=== PATIENT | female | born 1960 | race Caucasian/White ===

== ENCOUNTER 2016-12-02 17:42 | Inpatient (IN) | payer OTHER ==
[~2016-12-02] VITALS: Ht 152.4 cm; Wt 82.0 kg
[2016-12-02 18:11] LABS: AADO2 Arterial 28.8 mmHg (7.0-24.0); Allen Test ACCEPTAB; Arterial Base Excess 7.9 mmol/L (-3.0-3); Arterial COHb 0.8 % (0.0-3.0); Arterial HCO3 35.1 mmol/L (22.0-26.0); Arterial MetHb 0.3 % (0.0-1.5); Arterial Total Hemglobin 17.8 g/dl (12.0-18.0); MODE ROOM AIR
[2016-12-02] MEDS ORDERED: ATOR10TA65 PO (18:24)
[2016-12-02] MEDS ORDERED: LOSA50TA6 PO (18:25)
[2016-12-02] MEDS ORDERED: HYD25 PO (18:25)
--- NOTE | 2016-12-02 18:50 | RADRPT ---
PROCEDURE: XR Chest. CLINICAL INDICATION: chest pain TECHNIQUE: Single frontal view of the chest was obtained COMPARISON: None FINDINGS: The heart and mediastinum are within normal limits. The lungs are clear. There is no pleural effusion or pneumothorax. RPTAT: AA IMPRESSION: No acute disease. .Viraj Yoo MD, Date Time Electronically viewed and signed by .Viraj Yoo MD, on 12/02/2016 18:49 .S/
[2016-12-02 19:08] LABS: BASOPHILS % 0.3 % (0.0-2.0); EOSINOPHILS # 0.2 10^3/ul (0.0-0.5); EOSINOPHILS % 1.8 % (0.0-7.0); HEMATOCRIT 47.3 % (37.0-47.0); LYMPHOCYTES # 2.6 10^3/ul (0.8-2.9); LYMPHOCYTES % 20.4 % (15.0-51.0); MEAN CORPUSCULAR HGB CONC 33.8 g/dl (32.0-37.0); MEAN CORPUSCULAR VOLUME 85.7 fl (82.0-101.0); MONOCYTE # 1.3 10^3/ul (0.3-0.9); MONOCYTES % 10.4 % (0.0-11.0); NEUTROPHILS % 66.8 % (39.0-77.0); PLATELET COUNT 319 10^3/UL (140-415); RED BLOOD COUNT 5.52 10^6/ul (4.20-5.40); RED CELL DISTRIBUTION WIDTH 13.3 % (11.5-14.5); WHITE BLOOD COUNT 12.5 10^3/ul (4.8-10.8)
[2016-12-02] MEDS ORDERED: ALBUTEROL 0.083% (NEB) 2.5 MG/3 ML AMP HHN STA (19:26)
[2016-12-02 19:27] LABS: ANION GAP 15 (8-16); BLOOD UREA NITROGEN 13 mg/dl (7-20); CALCIUM 9.7 mg/dl (8.4-10.2); CARBON DIOXIDE 36 mmol/L (21-31); CHLORIDE 93 mmol/L (97-110); CREATININE 0.54 mg/dl (0.44-1.00); GLUCOSE 143 mg/dl (70-220); POTASSIUM 3.3 mmol/L (3.5-5.1); SODIUM 141 mmol/L (135-144)
[2016-12-02] MEDS ORDERED: IPRATROPIUM (NEB) 0.5 MG/2.5 ML AMP HHN ONE (19:30)
[2016-12-02 19:39] LABS: B-TYPE NATRIURETIC PEPTIDE 46 PG/ML (0-125)
[2016-12-02 19:56] LABS: TROPONIN-I < 0.012 ng/ml (0.00-0.12)
[2016-12-02] MEDS ORDERED: SOD CHLORIDE 0.9% 100 ML ONE (20:25)
[2016-12-02] MEDS ORDERED: IOHEXOL 100 ML ONE (20:25)
[2016-12-02] MEDS ORDERED: IOHEXOL 350MG/ML 50 ML BTL ONE (20:26)
[2016-12-02 21:14] LABS: ADD UMIC NO; UR ASCORBIC ACID NEGATIVE (NEGATIVE); UR BILIRUBIN (Dip) NEGATIVE (NEGATIVE); UR BLOOD (Dip) NEGATIVE (NEGATIVE); UR CLARITY CLEAR (CLEAR); UR COLOR YELLOW (YELLOW); UR GLUCOSE (Dip) NEGATIVE (NEGATIVE); UR KETONES (Dip) NEGATIVE (NEGATIVE); UR LEUKOCYTE ESTERASE (Dip) NEGATIVE Leu/ul (NEGATIVE); UR NITRITE (Dip) NEGATIVE (NEGATIVE); UR SPECIFIC GRAVITY (Dip) 1.011 (1.003-1.030); UR TOTAL PROTEIN (Dip) NEGATIVE (NEGATIVE); UR UROBILINOGEN (Dip) 1+ mg/dL (NEGATIVE)
--- NOTE | 2016-12-02 21:51 | RADRPT ---
PROCEDURE: CTA chest pulmonary angiography. CLINICAL INDICATION: Dyspnea and hypoxia. TECHNIQUE: CT angiography of the chest was performed after the uneventful intravenous administratio n of 115 cc of Omnipaque 350. Coronal and sagittal reformations were performed. 3-D/multiplanar re formations were performed by the technologist and an independent workstation. The total exam CTDI = 22.53, 9.17 mGy and the DLP equals 354.69 mGy-cm. One or more of the following dose reduction techniques were used: - Automated exposure control. - Adjustment of the mA and/or kV according to patient size. - Use of iterative reconstruction technique. COMPARISON: Chest x-ray dated 12/02/2016[facility] FINDINGS: Pulmonary angiogram: There are no emboli through the level of the subsegmental pulmonary arteries. The main pulmonary artery is normal in caliber and there is no evidence of right heart strain. Lungs, pleura, airways, and thoracic inlet: There is moderate to severe centrilobular and parasepta l emphysema. There is no focal consolidation, effusion, or pneumothorax. There are no concerning pu lmonary nodules or masses. The tracheobronchial tree is patent and normal in course and caliber. Cardiovascular system, mediastinum, and lymphatics: The heart is normal in size without pericardial thickening or effusion. There are atherosclerotic changes of the aorta, which is nonaneurysmal. The re is no axillary, hilar, or mediastinal adenopathy. Visualized upper abdomen: The visualized upper abdomen is unremarkable. Musculoskeletal system and soft tissues: There is mild to moderate multilevel degenerative enthesop athy. There are no concerning osseous lesions. There is a 1.9 cm cyst within the midline cutaneous t issues at the level of the sternum. IMPRESSION: 1. No pulmonary emboli through the level of the subsegmental pulmonary arteries. 2. Moderate to severe centrilobular and paraseptal emphysema. No focal consolidation. 3. Cyst within the midline cutaneous tissues at the level of the sternum. 4. Vascular calcifications consistent with atherosclerosis. RPTAT: HLBP .Leo Medeiros MD, Date Time Electronically viewed and signed by .Leo Medeiros MD, on 12/02/2016 21:51 .P/
[2016-12-02] MEDS ORDERED: ACETAMINOPHEN 325 MG TAB PO PRN (22:30)
[2016-12-02] MEDS ORDERED: METHYLPREDNISOLONE 125 MG INJ IV ONE (22:30)
[2016-12-02] MEDS ORDERED: ONDANSETRON 4 MG INJ IV PRN (22:30)
[2016-12-02 22:53] VITALS: TEMP 98.9
--- NOTE | 2016-12-02 22:57 | ERA ---
ER Documentation Chief Complaint Date/Time DATE: 12/02/16 TIME: 22:50 Chief Complaint Sent from Dr Diaz's Office for eval SOB sat at 84% HPI This 56-year-old female sent from Dr. Orantes's office for shortness of breath in the office and a saturation of 84% on room air. Sent her in for further workup. She is still short of breath. Does not have any chest pain but some chest discomfort. Denies any cough. Does have Dr. taylor was mentioned that she may have asthma though she has no history of it after 56 years. No fevers and chills ROS All systems reviewed and are negative except as per history of present illness. Medications Home Meds Reported Medications Losartan Potassium* (Losartan Potassium*) 50 Mg Tablet, 50 MG PO DAILY, TAB 12/02/16 Hydrochlorothiazide* (Hydrochlorothiazide*) 25 Mg Tab, 25 MG PO DAILY, #30 TAB 12/02/16 Atorvastatin Calcium (Atorvastatin Calcium) 10 Mg Tablet, 10 MG PO QHS, #30 TAB 12/02/16 Allergies Allergies: Coded Allergies: No Known Allergy (Unverified , 12/02/16) PMhx/Soc History of Surgery: Yes () Hx Cardiac Disorders: Yes (HLD, HTN, ) Hx Alcohol Use: No Hx Substance Use: No Hx Tobacco Use: No Smoking Status: Never smoker Physical Exam Vitals Vital Signs Date Time Temp Pulse Resp B/P Pulse Ox O2 Delivery O2 Flow Rate FiO2 12/02/16 20:06 80 20 96 Nasal Cannula 3.0 12/02/16 19:58 Nasal Cannula 3.0 12/02/16 19:58 80 24 119/49 96 Nasal Cannula 3.0 12/02/16 19:54 Nasal Cannula 3 12/02/16 17:48 99.2 82 20 178/79 98 Physical Exam Const: [] Moderate distress Head: Atraumatic Eyes: Normal Conjunctiva ENT: Normal External Ears, Nose and Mouth. Neck: Full range of motion..~ No meningismus. Resp: Mild tachypnea with decreased breath sounds bilaterally, scant wheezing on left side Cardio: Regular Mild tachycardia, no murmurs Abd: Soft, non tender, non distended. Normal bowel sounds Skin: No petechiae or rashes Back: No midline or flank tenderness Ext: No cyanosis, or edema Neur: Awake and alert Psych: Normal Mood and Affect Result Diagram: 12/02/16 1855 12/02/16 1855 Results 24 hrs Laboratory Tests Test 12/02/16 17:53 12/02/16 18:55 12/02/16 20:54 Blood Gas Specimen Source Blood arterial Arterial Blood Date Drawn 12/02/2016 6:00:48 PM Arterial Blood pH (Temp corrected) 7.408 Arterial Blood pCO2 (Temp correct) 56.9mmhg Arterial Blood pO2 (Temp corrected) 52.8mmHG Arterial Blood HCO3 35.1mmol/L Arterial Blood Base Excess 7.9mmol/L Arterial Blood Oxygen Saturation 88.0mmHG Ford Test ACCEPTAB Arterial Blood Gas Puncture Site Right Radial Arterial Blood Carboxyhemoglobin 0.8% Arterial Blood Methemoglobin 0.3% Blood Gas A-a O2 Differential 28.8mmHg Oxyhemoglobin Percent 87.0% Total Hemoglobin 17.8g/dl Blood Gas Temperature 37.0C Blood Gas Modality ROOM AIR FiO2 21.0% Blood Gas Critical Value Read Back DR. PORTER Blood Gas Notified Whom Kalen Blood Gas Notified Time 12/02/2016 6:11:20 PM White Blood Count 12.510^3/ul Red Blood Count 5.5210^6/ul Hemoglobin 16.0g/dl Hematocrit 47.3% Mean Corpuscular Volume 85.7fl Mean Corpuscular Hemoglobin 29.0pg Mean Corpuscular Hemoglobin Concent 33.8g/dl Red Cell Distribution Width 13.3% Platelet Count 31115^3/UL Mean Platelet Volume 10.0fl Neutrophils % 66.8% Lymphocytes % 20.4% Monocytes % 10.4% Eosinophils % 1.8% Basophils % 0.3% Nucleated Red Blood Cells % 0.0/100WBC Neutrophils # (Manual) 8.410^3/ul Lymphocytes # 2.610^3/ul Monocytes # 1.310^3/ul Eosinophils # 0.210^3/ul Basophils # 0.010^3/ul Nucleated Red Blood Cells # 0.010^3/ul Sodium Level 141mmol/L Potassium Level 3.3mmol/L Chloride Level 93mmol/L Carbon Dioxide Level 36mmol/L Anion Gap 15 Blood Urea Nitrogen 13mg/dl Creatinine 0.54mg/dl Glucose Level 143mg/dl Calcium Level 9.7mg/dl Troponin I < 0.012ng/ml B-Type Natriuretic Peptide 46PG/ML Urine Color YELLOW Urine Clarity CLEAR Urine pH 5.0 Urine Specific [place] 1.011 Urine Ketones NEGATIVEmg/dL Urine Nitrite NEGATIVEmg/dL Urine Bilirubin NEGATIVEmg/dL Urine Urobilinogen 1+mg/dL Urine Leukocyte Esterase NEGATIVELeu/ul Urine Hemoglobin NEGATIVEmg/dL Urine Glucose NEGATIVEmg/dL Urine Total Protein NEGATIVEmg/dl Current Medications Medications (Trade) Dose Ordered Sig/Marty Route PRN Reason Start Time Stop Time Status Last Admin Dose Admin Albuterol (Proventil 0.083% (Neb)) 5 mg ONCE STAT N 12/02/16 19:26 12/02/16 19:38 DC 12/02/16 20:06 Ipratropium [place] (Atrovent 0.02% (Neb)) 0.5 mg ONCE ONCE N 12/02/16 19:30 12/02/16 19:38 DC 12/02/16 20:05 IV Flush 10 ml 10 ml STK-MED ONCE .ROUTE 12/02/16 20:25 12/02/16 20:26 DC 12/02/16 21:23 Sodium Chloride 100 ml @ ud STK-MED ONCE .ROUTE 12/02/16 20:25 12/02/16 20:26 DC 12/02/16 21:20 Iohexol (Omnipaque) 100 ml @ ud STK-MED ONCE .ROUTE 12/02/16 20:25 12/02/16 20:26 DC 12/02/16 21:23 Iohexol (Omnipaque 350mg/ ml) 50 ml STK-MED ONCE .ROUTE 12/02/16 20:26 12/02/16 20:27 DC 12/02/16 21:20 Methylprednisolone Sodium Succinate (Solu-Medrol) 125 mg ONCE ONCE IV 12/02/16 22:30 12/02/16 22:31 DC Ondansetron HCl (Zofran Inj) 4 mg ER BRIDGE PRN IV NAUSEA AND/OR VOMITING 12/02/16 22:30 12/03/16 22:29 Acetaminophen (Tylenol Tab) 650 mg ER BRIDGE PRN PO MILD PAIN/FEVER 12/02/16 22:30 12/03/16 22:29 Procedures/MDM Dyspnea with hypoxemia and mild CO2 retention out of proportion of the patient' s hypoxia. Atrial fibrillation which appears to be new. She was treated with albuterol and Atrovent breathing treatments which made her feel little better. Is also given Solu-Medrol. No signs of cardiac ischemia. PE is essentially ruled out by CAT scan. She will be admitted and likely receive a consult from Dr. Beasley, for further workup why this 56-year-old patient is slowly developing respiratory disease causing hypoxia. Elevated white blood cell count and any other signs of acute infection. Dr. Brown is admitting EKG interpretation: Normal sinus rhythm rate of 89, normal axis, no ST or T- wave changes concerning for acute ischemia EKG #2 interpretation: Atrial fibrillation with slow ventricular response, rate of 54, no posterior chain T-wave changes concerning for acute ischemia, normal axis. Chronic monitor interpretation: Alternating atrial fibrillation and normal sinus rhythm Chest x-ray interpretation: I see no acute process, no infiltrate, no wide mediastinum, no pneumothorax, no fractures CT chest and you interpretation: Emphysema without any filling defects or pulmonary embolism, no free air, no pneumothorax, no blebs, no fractures per Departure Diagnosis: Primary Impression: Hypoxia Additional Impressions: Reactive airway disease Atrial fibrillation CO2 retention Condition: Serious GERMANKOBY Dec 02, 2016 22:57
[2016-12-02 23:20] VITALS: BP 124/59; RESP 16
[2016-12-03] VITALS (12 sets, daily range): BP systolic 109–129; BP diastolic 55–60; PULSE 78–101; RESP 16–20; Ht 152.4 cm; Wt 82.0 kg
[2016-12-03] MEDS ORDERED: morphine 2 MG INJ IV PRN
[2016-12-03 01:36] LABS: CREATINE KINASE 25 IU/L (23-200)
[2016-12-03 01:49] LABS: CK-MB 0.78 ng/ml (0.0-2.4)
[2016-12-03 01:54] LABS: TROPONIN-I < 0.012 ng/ml (0.00-0.12)
[2016-12-03 07:05] LABS: HEMATOCRIT 48.1 % (37.0-47.0); MEAN CORPUSCULAR HEMOGLOBIN 29.2 pg (29.0-33.0); MEAN CORPUSCULAR HGB CONC 33.3 g/dl (32.0-37.0); MEAN CORPUSCULAR VOLUME 87.8 fl (82.0-101.0); MEAN PLATELET VOLUME 10.1 fl (7.4-10.4); PLATELET COUNT 293 10^3/UL (140-415); RED BLOOD COUNT 5.48 10^6/ul (4.20-5.40); RED CELL DISTRIBUTION WIDTH 13.2 % (11.5-14.5); WHITE BLOOD COUNT 9.7 10^3/ul (4.8-10.8)
[2016-12-03 07:16] LABS: POSITIVE DIFF @See below
--- NOTE | 2016-12-03 07:29 | HP ---
Date/Time of Note Date/Time of Note DATE: 12/03/16 TIME: 07:24 Assessment/Plan VTE Prophylaxis VTE Prophylaxis Intervention: SCD's Lines/Catheters IV Catheter Type (from Nrs): Saline Lock Urinary Cath still in place: No Assessment/Plan Assessment/Plan 1. Severe emphysema -Supplemental oxygen, bronchodilators and steroid -Pulmonary to follow 2. Hypoxia and hypercapnia, secondary to above -See #1 3. Hypertension: BP not at goal -Adjust antihypertensives with adjustment as needed 4. Leukocytosis: Likely reactive -UA negative for UTI and chest imaging was no clear infiltrate -Monitor for now, but anticipate uptrending because of steroid HPI/ROS Admit Date/Time Admit Date/Time Dec 02, 2016 at 22:21 Hx of Present Illness This is a 56-year-old female with a history of hypertension who was sent by Dr. Diaz for hypoxia and shortness of breath. Patient denied a history of reactive airway disease. When she presented to the ER, blood pressure was 178/79 with a heart rate of 82. She was afebrile and oxygen saturation was 97% on room air. ABG on room air shows pH of 7.4, PCO2 57, PO2 [address] pulmonary angiogram shows moderate to severe centrilobular emphysema. . PMH/Family/Social Past Medical History Medical History: hypertension Social History Alcohol Use: none Smoking Status: Never smoker Drug Use: none Exam/Review of Systems Vital Signs Vitals Vital Signs Date Time Temp Pulse Resp B/P Pulse Ox O2 Delivery O2 Flow Rate FiO2 12/03/16 07:02 98.3 85 18 117/59 93 12/03/16 00:00 Nasal Cannula 3.0 Exam Constitutional: alert, oriented, well developed Head: normocephalic Eyes: EOMI, PERRL Respiratory: diminished breath sounds Cardiovascular: nl pulses, regular rate and rhythm Gastrointestinal: non-tender, soft Extremities: normal pulses Labs Result Diagram: 12/03/16 0611 12/02/16 3521 Medications Medications Current Medications Morphine Sulfate (morphine) 2 mg Q4H PRN IV SEVERE PAIN LEVEL 7-10; Start at 00:00 Methylprednisolone Sodium Succinate (Solu-Medrol) 60 mg BID IV ; Start 12/03/16 at 09:00 Atorvastatin Calcium (Lipitor) 10 mg QHS PO ; Start 12/03/16 at 21:00 Hydrochlorothiazide (Hydrochlorothiazide) 25 mg DAILY PO ; Start 12/03/16 at 09: 00 Losartan Potassium (Cozaar) 50 mg DAILY PO ; Start 12/03/16 at 09:00 FLORI NAVARRO MD Dec 03, 2016 07:29
[2016-12-03 07:33] LABS: CREATINE KINASE 22 IU/L (23-200)
[2016-12-03 07:40] LABS: CALCIUM 9.8 mg/dl (8.4-10.2); CREATININE 0.6 mg/dl (0.44-1.00); POTASSIUM 4.2 mmol/L (3.5-5.1)
[2016-12-03 07:43] LABS: CK-MB 0.76 ng/ml (0.0-2.4)
[2016-12-03 07:45] LABS: TROPONIN-I < 0.012 ng/ml (0.00-0.12)
[2016-12-03] MEDS: ALBUTEROL/IPRATROPIUM (NEB) 3 ML AMP HHN SCH ×4 (08:18→20:16)
[2016-12-03] MEDS: METHYLPREDNISOLONE 125 MG INJ IV SCH ×2 (09:59→21:27)
[2016-12-03] MEDS: LOSARTAN 50 MG TAB PO SCH (10:00)
[2016-12-03] MEDS: HYDROCHLOROTHIAZIDE 25 MG TAB PO SCH (10:00)
--- NOTE | 2016-12-03 12:54 | PN ---
Date/Time of Note Date/Time of Note DATE: 12/03/16 TIME: 12:50 Assessment/Plan VTE Prophylaxis VTE Prophylaxis Intervention: SCD's Lines/Catheters [facility] Saline Lock Urinary Cath still in place: No Assessment/Plan Chief Complaint/Hosp Course Assessment/Plan: 56-year-old female with: 1. Severe emphysema-still present, slowly improving -Continue supplemental oxygen, bronchodilators and steroid, add Levaquin -Pulmonary to follow 2. Hypoxia and hypercapnia, secondary to above -See #1 3. Hypertension: BP not at goal -Adjust antihypertensives with adjustment as needed 4. Leukocytosis: Likely reactive -UA negative for UTI and chest imaging was no clear infiltrate -Monitor for now, but anticipate uptrending because of steroid 5. Possible diabetes: Check A1c, add sliding scale for now 6. Questionable high cholesterol: Check lipid panel Problems: Subjective 24 Hr Interval Summary Free Text/Dictation Patient had some slight desaturation earlier this morning, now on 4 L oxygen, otherwise no acute events overnight. Exam/Review of Systems Vital Signs Vitals Vital Signs Date Time Temp Pulse Resp B/P Pulse Ox O2 Delivery O2 Flow Rate FiO2 12/03/16 12:24 78 18 98 Nasal Cannula 2.0 12/03/16 11:36 98.4 122/58 Exam Constitutional: alert, oriented, well developed Head: normocephalic Eyes: EOMI, PERRL Respiratory: some diminished breath sounds Cardiovascular: nl pulses, regular rate and rhythm Gastrointestinal: non-tender, soft Extremities: normal pulses Results Result Diagram: 12/03/16 0611 12/03/16 0611 Results 24 hrs Laboratory Tests Test 12/02/16 17:53 12/02/16 18:55 12/02/16 20:54 12/03/16 00:50 Blood Gas Specimen Source Blood arterial Arterial Blood Date Drawn 12/02/2016 6:00:48 PM Arterial Blood pH (Temp corrected) 7.408 Arterial Blood pCO2 (Temp correct) 56.9 H Arterial Blood pO2 (Temp corrected) 52.8 *L Arterial Blood HCO3 35.1 H Arterial Blood Base Excess 7.9 H Arterial Blood Oxygen Saturation 88.0 L Ford Test ACCEPTAB Arterial Blood Gas Puncture Site Right Radial Arterial Blood Carboxyhemoglobin 0.8 Arterial Blood Methemoglobin 0.3 Blood Gas A-a O2 Differential 28.8 H Oxyhemoglobin Percent 87.0 L Total Hemoglobin 17.8 Blood Gas Temperature 37.0 Blood Gas Modality ROOM AIR FiO2 21.0 Blood Gas Critical Value Read Back DR. PORTER Blood Gas Notified Whom Kalen Blood Gas Notified Time 12/02/2016 6:11:20 PM White Blood Count 12.5 H Red Blood Count 5.52 H Hemoglobin 16.0 Hematocrit 47.3 H Mean Corpuscular Volume 85.7 Mean Corpuscular Hemoglobin 29.0 Mean Corpuscular Hemoglobin Concent 33.8 Red Cell Distribution Width 13.3 Platelet Count 319 Mean Platelet Volume 10.0 Neutrophils % 66.8 Lymphocytes % 20.4 Monocytes % 10.4 Eosinophils % 1.8 Basophils % 0.3 Nucleated Red Blood Cells % 0.0 Neutrophils # (Manual) 8.4 H Lymphocytes # 2.6 Monocytes # 1.3 H Eosinophils # 0.2 Basophils # 0.0 Nucleated Red Blood Cells # 0.0 Sodium Level 141 Potassium Level 3.3 L Chloride Level 93 L Carbon Dioxide Level 36 H Anion Gap 15 Blood Urea Nitrogen 13 Creatinine 0.54 Glucose Level 143 Calcium Level 9.7 Troponin I < 0.012 < 0.012 B-Type Natriuretic Peptide 46 Urine Color YELLOW Urine Clarity CLEAR Urine pH 5.0 Urine Specific [place] 1.011 Urine Ketones NEGATIVE Urine Nitrite NEGATIVE Urine Bilirubin NEGATIVE Urine Urobilinogen 1+ H Urine Leukocyte Esterase NEGATIVE Urine Hemoglobin NEGATIVE Urine Glucose NEGATIVE Urine Total Protein NEGATIVE Creatine Kinase 25 Creatine Kinase Index 3.1 Creatinine Kinase MB (Mass) 0.78 Test 12/03/16 06:11 White Blood Count 9.7 # Red Blood Count 5.48 H Hemoglobin 16.0 Hematocrit 48.1 H Mean Corpuscular Volume 87.8 Mean Corpuscular Hemoglobin 29.2 Mean Corpuscular Hemoglobin Concent 33.3 Red Cell Distribution Width 13.2 Platelet Count 293 Mean Platelet Volume 10.1 Neutrophils % Lymphocytes % Monocytes % Eosinophils % Basophils % Nucleated Red Blood Cells % 0.0 Neutrophils # (Manual) 9.0 H Lymphocytes # Monocytes # Eosinophils # Basophils # Nucleated Red Blood Cells # Sodium Level 138 Potassium Level 4.2 Chloride Level 94 L Carbon Dioxide Level 35 H Anion Gap 13 Blood Urea Nitrogen 15 Creatinine 0.60 Glucose Level 288 #H Calcium Level 9.8 Creatine Kinase 22 L Creatine Kinase Index 3.5 Creatinine Kinase MB (Mass) 0.76 Troponin I < 0.012 Medications Medications Current Medications Morphine Sulfate (morphine) 2 mg Q4H PRN IV SEVERE PAIN LEVEL 7-10; Start at 00:00 Methylprednisolone Sodium Succinate (Solu-Medrol) 60 mg BID IV Last administered on 12/03/16 09:59; Admin Dose 60 MG; Start 12/03/16 at 09:00 Atorvastatin Calcium (Lipitor) 10 mg QHS PO ; Start 12/03/16 at 21:00 Hydrochlorothiazide (Hydrochlorothiazide) 25 mg DAILY PO Last administered on 10:00; Admin Dose 25 MG; Start 12/03/16 at 09:00 Losartan Potassium 50 mg 50 mg DAILY PO Last administered on 12/03/16 10:00; Admin Dose 50 MG; Start 12/03/16 at 09:00 Levofloxacin/ Dextrose (Levaquin 750 Mg/ D5W 150 ml (Pmx)) 150 ml @ 100 mls/hr Q24H IVPB ; Start 12/03/16 at 13:00; Status GISELLE MCDOWELL Dec 03, 2016 12:54
[2016-12-03] MEDS: LEVOFLOXACIN 750MG/D5W (PMX) 150 ML IVPB SCH (13:10)
[2016-12-03 13:23] LABS: CHOL/HDL RATIO 2.5 RATIO
[2016-12-03] MEDS ORDERED: GLUCAGON 1 MG INJ IM PRN (13:30)
[2016-12-03] MEDS ORDERED: GLUCOSE GEL 15 GRAM TUBE PO PRN ×2 (13:30)
[2016-12-03] MEDS ORDERED: GLUCOSE GEL 15 GRAM TUBE BUCCAL PRN (13:30)
[2016-12-03] MEDS ORDERED: DEXTROSE 50% 50 ML SYRINGE IV PRN ×2 (13:30)
[2016-12-03] MEDS: INSULIN ASPART [NOVOLOG] 3 ML PEN SC SCH ×2 (18:11→21:00)
[2016-12-03] MEDS: ATORVASTATIN 10 MG TAB PO SCH (21:27)
[2016-12-03] MEDS ORDERED: INSULIN ASPART [NOVOLOG] 3 ML PEN SC ONE (21:30)
[2016-12-03] MEDS ORDERED: INSULIN GLARGINE [LANtus] 3 ML PEN SC SCH (21:48)
[2016-12-04] VITALS (12 sets, daily range): BP systolic 104–119; BP diastolic 52–56; PULSE 73–98; RESP 17–20
[2016-12-04] MEDS ORDERED: ACCU-CHEK XX SCH (02:00)
[2016-12-04] MEDS: ACCU-CHEK XX SCH (02:00)
[2016-12-04 07:02] LABS: BASOPHILS % 0.2 % (0.0-2.0); HEMATOCRIT 44.7 % (37.0-47.0); HEMOGLOBIN 15.3 g/dl (12.0-16.0); LYMPHOCYTES # 0.9 10^3/ul (0.8-2.9); LYMPHOCYTES % 4.6 % (15.0-51.0); MEAN CORPUSCULAR HEMOGLOBIN 29.5 pg (29.0-33.0); MEAN CORPUSCULAR HGB CONC 34.2 g/dl (32.0-37.0); MEAN CORPUSCULAR VOLUME 86.3 fl (82.0-101.0); MEAN PLATELET VOLUME 10.8 fl (7.4-10.4); MONOCYTE # 0.6 10^3/ul (0.3-0.9); MONOCYTES % 2.8 % (0.0-11.0); NEUTROPHILS % 91.6 % (39.0-77.0); PLATELET COUNT 302 10^3/UL (140-415); RED BLOOD COUNT 5.18 10^6/ul (4.20-5.40); RED CELL DISTRIBUTION WIDTH 13.6 % (11.5-14.5); WHITE BLOOD COUNT 19.9 10^3/ul (4.8-10.8)
[2016-12-04 07:27] LABS: CALCIUM 9.6 mg/dl (8.4-10.2); CREATININE 0.67 mg/dl (0.44-1.00); POTASSIUM 3.7 mmol/L (3.5-5.1)
[2016-12-04] MEDS: ALBUTEROL/IPRATROPIUM (NEB) 3 ML AMP HHN SCH ×4 (07:31→20:27)
[2016-12-04] MEDS ORDERED: INSULIN ASPART [NOVOLOG] 3 ML PEN SC SCH (07:55)
[2016-12-04] MEDS: LOSARTAN 50 MG TAB PO SCH (08:55)
[2016-12-04] MEDS: HYDROCHLOROTHIAZIDE 25 MG TAB PO SCH (08:55)
[2016-12-04] MEDS: METHYLPREDNISOLONE 125 MG INJ IV SCH ×2 (08:56→20:43)
[2016-12-04] MEDS: INSULIN ASPART [NOVOLOG] 3 ML PEN SC SCH ×6 (08:58→20:45)
--- NOTE | 2016-12-04 13:04 | CONS ---
DATE OF ADMISSION: 12/02/2016 DATE OF CONSULTATION: 12/04/2016 REASON FOR CONSULTATION: Shortness of breath. Thank you, Dr. Strange, for this consultation. HISTORY OF PRESENT ILLNESS: This is a 56-year-old lady seen by myself for the 1st time 2 days ago in the office for evaluation of dyspnea. Upon evaluation in my office, she had an O2 sat in the low 80s in the absence of supplemental oxygen. She gave a long history of shortness of breath on exertion but no fever, chills, cough, sputum production, or hemoptysis, or hematemesis. She denies any tobacco history. No history of inhalational injury. 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 PAST MEDICAL HISTORY: Essential hypertension. MEDICATION: Per chart. ALLERGIES: UNKNOWN. SOCIAL HISTORY: Nonsmoker. No alcohol. No history of drug use. FAMILY HISTORY: Noncontributory. REVIEW OF SYSTEMS: Twelve point review of system negative than that mentioned above. PHYSICAL EXAMINATION: GENERAL APPEARANCE: Well-nourished, well-developed lady, comfortable at rest. No acute distress. VITAL SIGNS: Currently afebrile. Pulse is 80, blood pressure 104/55, O2 sat 92 percent on 2 L nasal cannula. NECK: Supple. No JVD, lymphadenopathy. CARDIAC: S1, S2. No added sounds or murmurs. CHEST: Diminished air entry bilaterally. ABDOMEN: Soft, nontender. No guarding or rebound. EXTREMITIES: No cyanosis, clubbing or edema. NEUROLOGIC: Grossly intact. There are no focal deficits. LABORATORY: White count initially 12.5, now 19.9, likely secondary to steroids. Chemistry: Blood glucose elevated at 275, likely exacerbated by steroids. PaO2 on room air was 52.8. CT angiogram was performed, demonstrated no pulmonary emboli, although moderate to severe centrilobular and paraseptal emphysema. IMPRESSION AND PLAN: A 56-year-old lady with significant hypoxemia which appears to be secondary to emphysema on CT of the chest. Concern for possible underlying pulmonary hypertension also. I will order echocardiogram and in the mean time, recommend continue bronchodilator, steroids, deep venous thrombosis and gastrointestinal prophylaxes. Dictated By: Felipe Diaz MD /johnny/maurilio /Document#: [id number]
--- NOTE | 2016-12-04 13:27 | PN ---
Date/Time of Note Date/Time of Note DATE: 12/04/16 TIME: 13:24 Assessment/Plan VTE Prophylaxis VTE Prophylaxis Intervention: SCD's Lines/Catheters [facility] Saline Lock Urinary Cath still in place: No Assessment/Plan Chief Complaint/Hosp Course Assessment/Plan: 56-year-old female with: 1. Shortness of breath: Secondary to severe emphysema, there also may be underlying component of pulmonary hypertension slowly improving -Continue supplemental oxygen, bronchodilators and steroid, Levaquin -Follow-up pulmonary recommendations 2. Hypoxia and hypercapnia, secondary to above -See #1 3. Hypertension: BP not at goal -Adjust antihypertensives with adjustment as needed 4. Leukocytosis: Likely reactive, patient also on IV steroids. UA negative for UTI and chest imaging was no clear infiltrate. -Monitor for now, but anticipate uptrending because of steroid 5. Possible diabetes -sugars are elevated, patient also on IV steroids, A1c = 6.8, -Continue sliding scale for now, also added on aspart and Lantus, monitor sugars and adjust accordingly 6. Questionable high cholesterol: Follow-up lipid panel Problems: Subjective 24 Hr Interval Summary Free Text/Dictation Patient seen by pulmonary team, no acute events overnight. Exam/Review of Systems Vital Signs Vitals Vital Signs Date Time Temp Pulse Resp B/P Pulse Ox O2 Delivery O2 Flow Rate FiO2 12/04/16 13:16 95 20 88 21 12/04/16 11:31 98.0 104/55 12/04/16 09:11 Nasal Cannula 2.0 Intake and Output 12/03/16 12/03/16 12/04/16 15:00 23:00 07:00 Intake Total 150 ml 800 ml 700 ml Balance 150 ml 800 ml 700 ml Exam Constitutional: alert, oriented, well developed Head: normocephalic Eyes: EOMI, PERRL Respiratory: some diminished breath sounds Cardiovascular: nl pulses, regular rate and rhythm Gastrointestinal: non-tender, soft Extremities: normal pulses Results Result Diagram: 12/04/16 0556 12/04/16 0556 Results 24 hrs Laboratory Tests Test 12/03/16 18:01 12/03/16 21:16 12/03/16 22:01 12/03/16 22:02 Bedside Glucose 322 H 412 *H 356 H Glucose Level 392 H Test 12/04/16 04:34 12/04/16 05:56 12/04/16 08:48 Bedside Glucose 274 H 209 White Blood Count 19.9 #H Red Blood Count 5.18 Hemoglobin 15.3 Hematocrit 44.7 Mean Corpuscular Volume 86.3 Mean Corpuscular Hemoglobin 29.5 Mean Corpuscular Hemoglobin Concent 34.2 Red Cell Distribution Width 13.6 Platelet Count 302 Mean Platelet Volume 10.8 H Neutrophils % 91.6 H Lymphocytes % 4.6 L Monocytes % 2.8 Eosinophils % 0.0 Basophils % 0.2 Nucleated Red Blood Cells % 0.0 Neutrophils # (Manual) 18.2 H Lymphocytes # 0.9 Monocytes # 0.6 Eosinophils # 0.0 Basophils # 0.0 Nucleated Red Blood Cells # 0.0 Sodium Level 136 Potassium Level 3.7 Chloride Level 93 L Carbon Dioxide Level 36 H Anion Gap 11 Blood Urea Nitrogen 18 Creatinine 0.67 Glucose Level 274 #H Calcium Level 9.6 Medications Medications Current Medications Morphine Sulfate (morphine) 2 mg Q4H PRN IV SEVERE PAIN LEVEL 7-10; Start at 00:00 Methylprednisolone Sodium Succinate (Solu-Medrol) 60 mg BID IV Last administered on 12/04/16 08:56; Admin Dose 60 MG; Start 12/03/16 at 09:00 Atorvastatin Calcium (Lipitor) 10 mg QHS PO Last administered on 12/03/16 21:27 ; Admin Dose 10 MG; Start 12/03/16 at 21:00 Hydrochlorothiazide (Hydrochlorothiazide) 25 mg DAILY PO Last administered on 08:55; Admin Dose 25 MG; Start 12/03/16 at 09:00 Losartan Potassium 50 mg 50 mg DAILY PO Last administered on 12/04/16 08:55; Admin Dose 50 MG; Start 12/03/16 at 09:00 Levofloxacin/ Dextrose (Levaquin 750 Mg/ D5W 150 ml (Pmx)) 150 ml @ 100 mls/hr Q24H IVPB Last administered on 12/03/16 13:10; Admin Dose 100 MLS/HR; Start 12/03/16 at 13:00 Diagnostic Test (Pha) (Accu-Chek) 1 ea 02 XX ; Start 12/04/16 at 02:00 Miscellaneous Information 1 ea NOTE XX ; Start 12/03/16 at 13:30 Glucose (Glutose) 15 gm Q15M PRN PO DECREASED GLUCOSE; Start 12/03/16 at 13:30 Glucose (Glutose) 22.5 gm Q15M PRN PO DECREASED GLUCOSE; Start 12/03/16 at 13:30 Dextrose (D50w Syringe) 25 ml Q15M PRN IV DECREASED GLUCOSE; Start 12/03/16 at 13:30 Dextrose (D50w Syringe) 50 ml Q15M PRN IV DECREASED GLUCOSE; Start 12/03/16 at 13:30 Glucagon (Glucagen) 1 mg Q15M PRN IM DECREASED GLUCOSE; Start 12/03/16 at 13:30 Glucose (Glutose) 15 gm Q15M PRN BUCCAL DECREASED GLUCOSE; Start 12/03/16 at 13: 30 Insulin Glargine (Lantus) 18 unit HS SC Last administered on 12/03/16t 22:05; Admin Dose 18 UNIT; Start 12/03/16 at 21:48 GISELLE TOLEDO Dec 04, 2016 13:27
[2016-12-04] MEDS: LEVOFLOXACIN 750MG/D5W (PMX) 150 ML IVPB SCH (13:38)
[2016-12-04] MEDS: ATORVASTATIN 10 MG TAB PO SCH (20:43)
[2016-12-04] MEDS ORDERED: INSULIN GLARGINE [LANtus] 3 ML PEN SC SCH ×2 (21:00)
[2016-12-05] VITALS (9 sets, daily range): BP systolic 116–119; BP diastolic 57–59; PULSE 65–81; RESP 17–18
[2016-12-05] MEDS: ACCU-CHEK XX SCH (02:00)
[2016-12-05 07:18] LABS: ABNORMAL IP MESSAGE 1; BASOPHILS % 0.1 % (0.0-2.0); HEMATOCRIT 48.2 % (37.0-47.0); HEMOGLOBIN 16.4 g/dl (12.0-16.0); LYMPHOCYTES # 0.8 10^3/ul (0.8-2.9); LYMPHOCYTES % 3.5 % (15.0-51.0); MEAN CORPUSCULAR HEMOGLOBIN 29.3 pg (29.0-33.0); MEAN CORPUSCULAR VOLUME 86.1 fl (82.0-101.0); MEAN PLATELET VOLUME 10.8 fl (7.4-10.4); MONOCYTE # 0.5 10^3/ul (0.3-0.9); NEUTROPHILS % 93.7 % (39.0-77.0); PLATELET COUNT 322 10^3/UL (140-415); RED CELL DISTRIBUTION WIDTH 13.6 % (11.5-14.5); WHITE BLOOD COUNT 22.2 10^3/ul (4.8-10.8)
[2016-12-05 07:21] LABS: POSITIVE DIFF @See below
[2016-12-05 07:49] LABS: CALCIUM 9.9 mg/dl (8.4-10.2); CREATININE 0.58 mg/dl (0.44-1.00); POTASSIUM 3.8 mmol/L (3.5-5.1)
[2016-12-05] MEDS: INSULIN ASPART [NOVOLOG] 3 ML PEN SC SCH ×7 (08:27→21:00)
--- NOTE | 2016-12-05 09:35 | CONS ---
Date/Time of Note Date/Time of Note DATE: 12/05/16 TIME: 09:32 Consult Date/Type/Reason Admit Date/Time Dec 02, 2016 at 22:21 Initial Consult Date Type of Consultation: Pulm Subjective Comfortable this morning. No events. Objective Vital Signs Date Time Temp Pulse Resp B/P Pulse Ox O2 Delivery O2 Flow Rate FiO2 12/05/16 08:29 Nasal Cannula 2.0 12/05/16 08:03 65 12/05/16 07:19 98.0 17 118/59 93 12/04/16 16:35 21 Intake and Output 12/04/16 12/04/16 12/05/16 15:00 23:00 07:00 Intake Total 150 ml 720 ml 500 ml Balance 150 ml 720 ml 500 ml Exam REVIEW OF SYSTEMS: Twelve point review of system negative than that mentioned above. PHYSICAL EXAMINATION: GENERAL APPEARANCE: Well-nourished, well-developed lady, comfortable at rest. No acute distress. VITAL SIGNS: NECK: Supple. No JVD, lymphadenopathy. CARDIAC: S1, S2. No added sounds or murmurs. CHEST: Diminished air entry bilaterally. ABDOMEN: Soft, nontender. No guarding or rebound. EXTREMITIES: No cyanosis, clubbing or edema. NEUROLOGIC: Grossly intact. There are no focal deficits. CT angiogram was performed, demonstrated no pulmonary emboli, although moderate to severe centrilobular and paraseptal emphysema. Results/Medications Result Diagram: 12/05/16 0639 12/05/16 0639 Results 24 hrs Laboratory Tests Test 12/04/16 13:23 12/04/16 17:56 12/04/16 20:41 12/05/16 03:00 Bedside Glucose 298 H 284 H 293 H 249 H Test 12/05/16 06:39 12/05/16 08:24 White Blood Count 22.2 H Red Blood Count 5.60 H Hemoglobin 16.4 H Hematocrit 48.2 H Mean Corpuscular Volume 86.1 Mean Corpuscular Hemoglobin 29.3 Mean Corpuscular Hemoglobin Concent 34.0 Red Cell Distribution Width 13.6 Platelet Count 322 Mean Platelet Volume 10.8 H Neutrophils % 93.7 H Lymphocytes % 3.5 L Monocytes % 2.0 Eosinophils % 0.0 Basophils % 0.1 Nucleated Red Blood Cells % 0.0 Neutrophils # (Manual) 20.8 H Lymphocytes # 0.8 Monocytes # 0.5 Eosinophils # 0.0 Basophils # 0.0 Nucleated Red Blood Cells # 0.0 Sodium Level 136 Potassium Level 3.8 Chloride Level 94 L Carbon Dioxide Level 33 H Anion Gap 13 Blood Urea Nitrogen 19 Creatinine 0.58 Glucose Level 265 H Calcium Level 9.9 Bedside Glucose 214 Medications Current Medications Morphine Sulfate (morphine) 2 mg Q4H PRN IV SEVERE PAIN LEVEL 7-10; Start at 00:00 Methylprednisolone Sodium Succinate (Solu-Medrol) 60 mg BID IV Last administered on 12/04/16 20:43; Admin Dose 60 MG; Start 12/03/16 at 09:00 Atorvastatin Calcium (Lipitor) 10 mg QHS PO Last administered on 12/04/16 20:43 ; Admin Dose 10 MG; Start 12/03/16 at 21:00 Hydrochlorothiazide (Hydrochlorothiazide) 25 mg DAILY PO Last administered on 08:55; Admin Dose 25 MG; Start 12/03/16 at 09:00 Losartan Potassium 50 mg 50 mg DAILY PO Last administered on 12/04/16 08:55; Admin Dose 50 MG; Start 12/03/16 at 09:00 Levofloxacin/ Dextrose (Levaquin 750 Mg/ D5W 150 ml (Pmx)) 150 ml @ 100 mls/hr Q24H IVPB Last administered on 12/04/16 13:38; Admin Dose 100 MLS/HR; Start 12/03/16 at 13:00 Diagnostic Test (Pha) (Accu-Chek) 1 ea 02 XX ; Start 12/04/16 at 02:00 Miscellaneous Information 1 ea NOTE XX ; Start 12/03/16 at 13:30 Glucose (Glutose) 15 gm Q15M PRN PO DECREASED GLUCOSE; Start 12/03/16 at 13:30 Glucose (Glutose) 22.5 gm Q15M PRN PO DECREASED GLUCOSE; Start 12/03/16 at 13:30 Dextrose (D50w Syringe) 25 ml Q15M PRN IV DECREASED GLUCOSE; Start 12/03/16 at 13:30 Dextrose (D50w Syringe) 50 ml Q15M PRN IV DECREASED GLUCOSE; Start 12/03/16 at 13:30 Glucagon (Glucagen) 1 mg Q15M PRN IM DECREASED GLUCOSE; Start 12/03/16 at 13:30 Glucose (Glutose) 15 gm Q15M PRN BUCCAL DECREASED GLUCOSE; Start 12/03/16 at 13: 30 Insulin Glargine (Lantus) 25 unit HS SC Last administered on 12/04/16t 20:52; Admin Dose 25 UNIT; Start 12/04/16 at 21:00 Assessment/Plan Chief Complaint/Hosp Course IMPRESSION AND PLAN: A 56-year-old lady with significant hypoxemia which appears to be secondary to emphysema on CT of the chest. Concern for possible underlying pulmonary hypertension also. - echo pending - alpha 1 antitrypsin level pending. - will need home o2 - continue steroid taper. Problems: SKY LIU MD, [facility] Dec 05, 2016 09:35
[2016-12-05] MEDS: HYDROCHLOROTHIAZIDE 25 MG TAB PO SCH (09:52)
[2016-12-05] MEDS: LOSARTAN 50 MG TAB PO SCH (09:52)
[2016-12-05] MEDS: ALBUTEROL/IPRATROPIUM (NEB) 3 ML AMP HHN SCH ×4 (10:00→20:34)
--- NOTE | 2016-12-05 11:57 | PN ---
Date/Time of Note Date/Time of Note DATE: 12/05/16 TIME: 11:55 Assessment/Plan VTE Prophylaxis VTE Prophylaxis Intervention: SCD's Lines/Catheters [facility] Peripheral IV Urinary Cath still in place: No Assessment/Plan Chief Complaint/Hosp Course Assessment/Plan: 56-year-old female with: 1. Shortness of breath: Secondary to severe emphysema, there also may be underlying component of pulmonary hypertension, slowly improving, but still requiring supplemental oxygen. -Continue supplemental oxygen, bronchodilators and steroid, Levaquin -Follow-up pulmonary recommendations, they are recommending home oxygen and we will alert case management to help set this up. 2. Hypoxia and hypercapnia, secondary to above -See #1 3. Hypertension: BP not at goal -Adjust antihypertensives with adjustment as needed 4. Leukocytosis: Likely reactive, patient also on IV steroids. UA negative for UTI and chest imaging was no clear infiltrate. -Monitor for now, but anticipate uptrending because of steroid 5. Possible diabetes -sugars are slightly improved from yesterday, but overall still elevated, patient also on IV steroids, A1c = 6.8 -Continue sliding scale for now, will increase aspart and Lantus dosages today, monitor sugars and adjust accordingly 6. Questionable high cholesterol: Follow-up lipid panel Problems: Subjective 24 Hr Interval Summary Free Text/Dictation Seen by pulmonary team this morning. Per nursing staff patient still with some slight desaturations on ambulation. Exam/Review of Systems Vital Signs Vitals Vital Signs Date Time Temp Pulse Resp B/P Pulse Ox O2 Delivery O2 Flow Rate FiO2 12/05/16 11:13 98.1 84 18 119/58 90 12/05/16 10:00 Nasal Cannula 2.0 12/04/16 16:35 21 Intake and Output 12/04/16 12/04/16 12/05/16 15:00 23:00 07:00 Intake Total 150 ml 720 ml 500 ml Balance 150 ml 720 ml 500 ml Exam Constitutional: alert, oriented, sitting on edge of bed, family members at bedside Head: normocephalic Eyes: EOMI, PERRL Respiratory: some diminished breath sounds Cardiovascular: nl pulses, regular rate and rhythm Gastrointestinal: non-tender, soft Extremities: normal pulses Results Result Diagram: 12/05/16 0639 12/05/16 0639 Results 24 hrs Laboratory Tests Test 12/04/16 13:23 12/04/16 17:56 12/04/16 20:41 12/05/16 03:00 Bedside Glucose 298 H 284 H 293 H 249 H Test 12/05/16 06:39 12/05/16 08:24 White Blood Count 22.2 H Red Blood Count 5.60 H Hemoglobin 16.4 H Hematocrit 48.2 H Mean Corpuscular Volume 86.1 Mean Corpuscular Hemoglobin 29.3 Mean Corpuscular Hemoglobin Concent 34.0 Red Cell Distribution Width 13.6 Platelet Count 322 Mean Platelet Volume 10.8 H Neutrophils % 93.7 H Lymphocytes % 3.5 L Monocytes % 2.0 Eosinophils % 0.0 Basophils % 0.1 Nucleated Red Blood Cells % 0.0 Neutrophils # (Manual) 20.8 H Lymphocytes # 0.8 Monocytes # 0.5 Eosinophils # 0.0 Basophils # 0.0 Nucleated Red Blood Cells # 0.0 Sodium Level 136 Potassium Level 3.8 Chloride Level 94 L Carbon Dioxide Level 33 H Anion Gap 13 Blood Urea Nitrogen 19 Creatinine 0.58 Glucose Level 265 H Calcium Level 9.9 Bedside Glucose 214 Medications Medications Current Medications Morphine Sulfate (morphine) 2 mg Q4H PRN IV SEVERE PAIN LEVEL 7-10; Start at 00:00 Atorvastatin Calcium (Lipitor) 10 mg QHS PO Last administered on 12/04/16 20:43 ; Admin Dose 10 MG; Start 12/03/16 at 21:00 Hydrochlorothiazide (Hydrochlorothiazide) 25 mg DAILY PO Last administered on 09:52; Admin Dose 25 MG; Start 12/03/16 at 09:00 Losartan Potassium 50 mg 50 mg DAILY PO Last administered on 12/05/16 09:52; Admin Dose 50 MG; Start 12/03/16 at 09:00 Levofloxacin/ Dextrose (Levaquin 750 Mg/ D5W 150 ml (Pmx)) 150 ml @ 100 mls/hr Q24H IVPB Last administered on 12/04/16 13:38; Admin Dose 100 MLS/HR; Start 12/03/16 at 13:00 Diagnostic Test (Pha) (Accu-Chek) 1 ea 02 XX ; Start 12/04/16 at 02:00 Miscellaneous Information 1 ea NOTE XX ; Start 12/03/16 at 13:30 Glucose (Glutose) 15 gm Q15M PRN PO DECREASED GLUCOSE; Start 12/03/16 at 13:30 Glucose (Glutose) 22.5 gm Q15M PRN PO DECREASED GLUCOSE; Start 12/03/16 at 13:30 Dextrose (D50w Syringe) 25 ml Q15M PRN IV DECREASED GLUCOSE; Start 12/03/16 at 13:30 Dextrose (D50w Syringe) 50 ml Q15M PRN IV DECREASED GLUCOSE; Start 12/03/16 at 13:30 Glucagon (Glucagen) 1 mg Q15M PRN IM DECREASED GLUCOSE; Start 12/03/16 at 13:30 Glucose (Glutose) 15 gm Q15M PRN BUCCAL DECREASED GLUCOSE; Start 12/03/16 at 13: 30 Methylprednisolone Sodium Succinate (Solu-Medrol) 40 mg BID IV ; Start 12/05/16 at 21:00 Insulin Glargine (Lantus) 35 unit HS SC ; Start 12/05/16 at 21:00; Status UNV GISELLE TOLEDO Dec 05, 2016 11:57
[2016-12-05] MEDS: LEVOFLOXACIN 750MG/D5W (PMX) 150 ML IVPB SCH (13:07)
[2016-12-05] MEDS: ATORVASTATIN 10 MG TAB PO SCH (21:02)
[2016-12-05] MEDS: METHYLPREDNISOLONE 40 MG INJ IV SCH (21:02)
[2016-12-05] MEDS: INSULIN GLARGINE [LANtus] 3 ML PEN SC SCH (21:12)
[2016-12-06] VITALS (11 sets, daily range): BP systolic 108–140; BP diastolic 54–69; PULSE 66–80; RESP 17–20
[2016-12-06] MEDS: ACCU-CHEK XX SCH (02:00)
[2016-12-06 07:16] LABS: BASOPHILS % 0.1 % (0.0-2.0); HEMATOCRIT 50.4 % (37.0-47.0); HEMOGLOBIN 16.7 g/dl (12.0-16.0); LYMPHOCYTES # 0.9 10^3/ul (0.8-2.9); LYMPHOCYTES % 5.5 % (15.0-51.0); MEAN CORPUSCULAR HEMOGLOBIN 28.7 pg (29.0-33.0); MEAN CORPUSCULAR HGB CONC 33.1 g/dl (32.0-37.0); MEAN CORPUSCULAR VOLUME 86.7 fl (82.0-101.0); MEAN PLATELET VOLUME 11.7 fl (7.4-10.4); MONOCYTE # 0.3 10^3/ul (0.3-0.9); MONOCYTES % 1.9 % (0.0-11.0); NEUTROPHILS % 92.1 % (39.0-77.0); PLATELET COUNT 246 10^3/UL (140-415); RED BLOOD COUNT 5.81 10^6/ul (4.20-5.40); RED CELL DISTRIBUTION WIDTH 13.6 % (11.5-14.5); WHITE BLOOD COUNT 15.5 10^3/ul (4.8-10.8)
[2016-12-06 07:22] LABS: CALCIUM 9.9 mg/dl (8.4-10.2); CREATININE 0.54 mg/dl (0.44-1.00); POTASSIUM 4.3 mmol/L (3.5-5.1)
[2016-12-06] MEDS: INSULIN ASPART [NOVOLOG] 3 ML PEN SC SCH ×7 (08:33→21:53)
[2016-12-06] MEDS: ALBUTEROL/IPRATROPIUM (NEB) 3 ML AMP HHN SCH ×4 (09:38→21:27)
[2016-12-06] MEDS: HYDROCHLOROTHIAZIDE 25 MG TAB PO SCH (09:57)
[2016-12-06] MEDS: METHYLPREDNISOLONE 40 MG INJ IV SCH (09:58)
[2016-12-06] MEDS: LOSARTAN 50 MG TAB PO SCH (09:58)
[2016-12-06] MEDS ORDERED: AZITHROMYCIN 250 MG TAB PO ONE (10:30)
--- NOTE | 2016-12-06 11:27 | CONS ---
Date/Time of Note Date/Time of Note DATE: 12/06/16 TIME: 11:26 Consult Date/Type/Reason Admit Date/Time Dec 02, 2016 at 22:21 Type of Consultation: Pulm Subjective Remains comfortable. No new events. Objective Vital Signs Date Time Temp Pulse Resp B/P Pulse Ox O2 Delivery O2 Flow Rate FiO2 12/06/16 11:16 98.6 85 18 121/65 96 12/06/16 09:39 Nasal Cannula 2.0 12/04/16 16:35 21 Intake and Output 12/05/16 12/05/16 12/06/16 15:00 23:00 07:00 Intake Total 150 ml 700 ml 500 ml Balance 150 ml 700 ml 500 ml Exam PHYSICAL EXAMINATION: GENERAL APPEARANCE: Well-nourished, well-developed lady, comfortable at rest. No acute distress. VITAL SIGNS: NECK: Supple. No JVD, lymphadenopathy. CARDIAC: S1, S2. No added sounds or murmurs. CHEST: Diminished air entry bilaterally. ABDOMEN: Soft, nontender. No guarding or rebound. EXTREMITIES: No cyanosis, clubbing or edema. NEUROLOGIC: Grossly intact. There are no focal deficits. Results/Medications Result Diagram: 12/06/16 0626 12/06/16 0626 Results 24 hrs Laboratory Tests Test 12/05/16 12:17 12/05/16 17:30 12/05/16 21:01 12/06/16 06:26 Bedside Glucose 162 135 148 White Blood Count 15.5 #H Red Blood Count 5.81 H Hemoglobin 16.7 H Hematocrit 50.4 H Mean Corpuscular Volume 86.7 Mean Corpuscular Hemoglobin 28.7 L Mean Corpuscular Hemoglobin Concent 33.1 Red Cell Distribution Width 13.6 Platelet Count 246 # Mean Platelet Volume 11.7 H Neutrophils % 92.1 H Lymphocytes % 5.5 L Monocytes % 1.9 Eosinophils % 0.0 Basophils % 0.1 Nucleated Red Blood Cells % 0.0 Neutrophils # (Manual) 14.3 H Lymphocytes # 0.9 Monocytes # 0.3 Eosinophils # 0.0 Basophils # 0.0 Nucleated Red Blood Cells # 0.0 Sodium Level 135 Potassium Level 4.3 Chloride Level 93 L Carbon Dioxide Level 34 H Anion Gap 12 Blood Urea Nitrogen 21 H Creatinine 0.54 Glucose Level 208 Calcium Level 9.9 Test 12/06/16 08:21 Bedside Glucose 167 Medications Current Medications Morphine Sulfate (morphine) 2 mg Q4H PRN IV SEVERE PAIN LEVEL 7-10; Start at 00:00 Atorvastatin Calcium (Lipitor) 10 mg QHS PO Last administered on 12/05/16 21:02 ; Admin Dose 10 MG; Start 12/03/16 at 21:00 Hydrochlorothiazide (Hydrochlorothiazide) 25 mg DAILY PO Last administered on 09:57; Admin Dose 25 MG; Start 12/03/16 at 09:00 Losartan Potassium (Cozaar) 50 mg DAILY PO Last administered on 12/06/16 09:58 ; Admin Dose 50 MG; Start 12/03/16 at 09:00 Diagnostic Test (Pha) (Accu-Chek) 1 ea 02 XX ; Start 12/04/16 at 02:00 Miscellaneous Information 1 ea NOTE XX ; Start 12/03/16 at 13:30 Glucose (Glutose) 15 gm Q15M PRN PO DECREASED GLUCOSE; Start 12/03/16 at 13:30 Glucose (Glutose) 22.5 gm Q15M PRN PO DECREASED GLUCOSE; Start 12/03/16 at 13:30 Dextrose (D50w Syringe) 25 ml Q15M PRN IV DECREASED GLUCOSE; Start 12/03/16 at 13:30 Dextrose (D50w Syringe) 50 ml Q15M PRN IV DECREASED GLUCOSE; Start 12/03/16 at 13:30 Glucagon (Glucagen) 1 mg Q15M PRN IM DECREASED GLUCOSE; Start 12/03/16 at 13:30 Glucose (Glutose) 15 gm Q15M PRN BUCCAL DECREASED GLUCOSE; Start 12/03/16 at 13: 30 Insulin Glargine (Lantus) 35 unit HS SC Last administered on 12/05/16 21:12; Admin Dose 35 UNIT; Start 12/05/16 at 21:00 Prednisone (Prednisone) 40 mg DAILY PO ; Start 12/07/16 at 09:00 Azithromycin (Zithromax) 500 mg DAILY PO ; Start 12/07/16 at 09:00 Assessment/Plan Chief Complaint/Hosp Course IMPRESSION AND PLAN: A 56-year-old lady with significant hypoxemia which appears to be secondary to emphysema on CT of the chest. Concern for possible underlying pulmonary hypertension also. - echo pending - alpha 1 antitrypsin level pending. - will need home o2 - continue steroid taper. DC home after echocardiogram. Problems: SKY LIU MD, [facility] Dec 06, 2016 11:27
--- NOTE | 2016-12-06 17:19 | PN ---
Date/Time of Note Date/Time of Note DATE: 12/06/16 TIME: 17:16 Assessment/Plan VTE Prophylaxis VTE Prophylaxis Intervention: SCD's Lines/Catheters IV Catheter Type (from Nrs): Saline Lock Urinary Cath still in place: No Assessment/Plan Assessment/Plan 56 yo F admitted for SOB, thought to be 2/2 COPD, concern for underlying pulm htn 1. Shortness of breath: Secondary to severe emphysema, there also may be underlying component of pulmonary hypertension, slowly improving, but still requiring supplemental oxygen. -Continue supplemental oxygen, bronchodilators and steroid, azithro -CM to help with home O2 arrangements. Will f/u in AM to make sure this is complete 2. HTN: cont current BP regimen 3. DM2: a1c 6.8. Cont current regimen 4. ?HL: LDL 70s likely dc in AM once home O2 arrangements fully in place and TTE results are in Subjective 24 Hr Interval Summary Free Text/Dictation Still waiting on TTE report Exam/Review of Systems Vital Signs Vitals Vital Signs Date Time Temp Pulse Resp B/P Pulse Ox O2 Delivery O2 Flow Rate FiO2 12/06/16 16:16 70 18 95 Nasal Cannula 2.0 12/06/16 15:06 97.8 108/54 12/04/16 16:35 21 Intake and Output 12/05/16 12/05/16 12/06/16 15:00 23:00 07:00 Intake Total 150 ml 700 ml 500 ml Balance 150 ml 700 ml 500 ml Exam nad no mrg abd soft no rashes no edema Results Result Diagram: 12/06/16 0626 12/06/16 0626 Results 24 hrs Laboratory Tests Test 12/05/16 17:30 12/05/16 21:01 12/06/16 06:26 12/06/16 08:21 Bedside Glucose 135 148 167 White Blood Count 15.5 #H Red Blood Count 5.81 H Hemoglobin 16.7 H Hematocrit 50.4 H Mean Corpuscular Volume 86.7 Mean Corpuscular Hemoglobin 28.7 L Mean Corpuscular Hemoglobin Concent 33.1 Red Cell Distribution Width 13.6 Platelet Count 246 # Mean Platelet Volume 11.7 H Neutrophils % 92.1 H Lymphocytes % 5.5 L Monocytes % 1.9 Eosinophils % 0.0 Basophils % 0.1 Nucleated Red Blood Cells % 0.0 Neutrophils # (Manual) 14.3 H Lymphocytes # 0.9 Monocytes # 0.3 Eosinophils # 0.0 Basophils # 0.0 Nucleated Red Blood Cells # 0.0 Sodium Level 135 Potassium Level 4.3 Chloride Level 93 L Carbon Dioxide Level 34 H Anion Gap 12 Blood Urea Nitrogen 21 H Creatinine 0.54 Glucose Level 208 Calcium Level 9.9 Test 12/06/16 11:58 Bedside Glucose 140 Medications Medications Current Medications Morphine Sulfate (morphine) 2 mg Q4H PRN IV SEVERE PAIN LEVEL 7-10; Start at 00:00 Atorvastatin Calcium (Lipitor) 10 mg QHS PO Last administered on 12/05/16 21:02 ; Admin Dose 10 MG; Start 12/03/16 at 21:00 Hydrochlorothiazide (Hydrochlorothiazide) 25 mg DAILY PO Last administered on 09:57; Admin Dose 25 MG; Start 12/03/16 at 09:00 Losartan Potassium (Cozaar) 50 mg DAILY PO Last administered on 12/06/16 09:58 ; Admin Dose 50 MG; Start 12/03/16 at 09:00 Diagnostic Test (Pha) (Accu-Chek) 1 ea 02 XX ; Start 12/04/16 at 02:00 Miscellaneous Information 1 ea NOTE XX ; Start 12/03/16 at 13:30 Glucose (Glutose) 15 gm Q15M PRN PO DECREASED GLUCOSE; Start 12/03/16 at 13:30 Glucose (Glutose) 22.5 gm Q15M PRN PO DECREASED GLUCOSE; Start 12/03/16 at 13:30 Dextrose (D50w Syringe) 25 ml Q15M PRN IV DECREASED GLUCOSE; Start 12/03/16 at 13:30 Dextrose (D50w Syringe) 50 ml Q15M PRN IV DECREASED GLUCOSE; Start 12/03/16 at 13:30 Glucagon (Glucagen) 1 mg Q15M PRN IM DECREASED GLUCOSE; Start 12/03/16 at 13:30 Glucose (Glutose) 15 gm Q15M PRN BUCCAL DECREASED GLUCOSE; Start 12/03/16 at 13: 30 Insulin Glargine (Lantus) 35 unit HS SC Last administered on 12/05/16 21:12; Admin Dose 35 UNIT; Start 12/05/16 at 21:00 Prednisone (Prednisone) 40 mg DAILY PO ; Start 12/07/16 at 09:00 Azithromycin (Zithromax) 500 mg DAILY PO ; Start 12/07/16 at 09:00 ONEYDA NEELY MD Dec 06, 2016 17:18
[2016-12-06] MEDS: ATORVASTATIN 10 MG TAB PO SCH (21:36)
[2016-12-06] MEDS: INSULIN GLARGINE [LANtus] 3 ML PEN SC SCH (21:53)
[2016-12-07] MEDS: ACCU-CHEK XX SCH (02:00)
[2016-12-07 02:46] VITALS: BP 110/61; RESP 19
[2016-12-07 05:30] LABS: BASOPHILS % 0.1 % (0.0-2.0); HEMATOCRIT 46.8 % (37.0-47.0); HEMOGLOBIN 15.7 g/dl (12.0-16.0); LYMPHOCYTES # 1.7 10^3/ul (0.8-2.9); MEAN CORPUSCULAR HEMOGLOBIN 28.7 pg (29.0-33.0); MEAN CORPUSCULAR HGB CONC 33.5 g/dl (32.0-37.0); MEAN CORPUSCULAR VOLUME 85.6 fl (82.0-101.0); MEAN PLATELET VOLUME 10.4 fl (7.4-10.4); MONOCYTE # 1.4 10^3/ul (0.3-0.9); MONOCYTES % 8.8 % (0.0-11.0); NEUTROPHILS % 79.8 % (39.0-77.0); PLATELET COUNT 291 10^3/UL (140-415); RED BLOOD COUNT 5.47 10^6/ul (4.20-5.40); RED CELL DISTRIBUTION WIDTH 13.2 % (11.5-14.5); WHITE BLOOD COUNT 15.7 10^3/ul (4.8-10.8)
[2016-12-07 05:45] LABS: CALCIUM 9.6 mg/dl (8.4-10.2); CREATININE 0.56 mg/dl (0.44-1.00); POTASSIUM 3.5 mmol/L (3.5-5.1)
[2016-12-07] MEDS: INSULIN ASPART [NOVOLOG] 3 ML PEN SC SCH ×6 (08:00→18:34)
[2016-12-07] MEDS: ALBUTEROL/IPRATROPIUM (NEB) 3 ML AMP HHN SCH ×3 (08:05→16:27)
[2016-12-07 08:32] VITALS: BP 139/71; RESP 18
[2016-12-07] MEDS ORDERED: predniSONE 20 MG TAB PO SCH (09:00)
[2016-12-07] MEDS ORDERED: AZITHROMYCIN 250 MG TAB PO SCH (09:00)
[2016-12-07] MEDS: HYDROCHLOROTHIAZIDE 25 MG TAB PO SCH (09:06)
[2016-12-07] MEDS: LOSARTAN 50 MG TAB PO SCH (09:06)
--- NOTE | 2016-12-07 14:48 | RADRPT ---
Echocardiogram Report Patient Name: DENYS BELL Gender: Female Date: 1960 Study Date: 05-Dec-2016 Dump Grader: DEBBIE Location: I Ref. Physician: SKY LIU Quality: Adequate Procedures: Transthoracic echocardiogram with 2D, M-Mode, and Doppler examination. Indications: Pulmonary Hypertension. 2D/M Mode Doppler Measurement Value Normal Ranges Measurement Value Normal Ranges AoR Diam MM 2.2 cm AV Peak Mark 1.5 m/sec LVIDd 2D 3.8 3.5 - 5.6 cm AV Peak PG 8.6 mmHg LVIDs 2D 2.6 2.1 - 4.1 cm LVOT Peak Mark 1.1 m/sec LVPWd 2D 0.9 0.6 - 1.1 cm LVOT Peak PG 4.6 mmHg IVSd 2D 0.8 0.6 - 1.1 cm MV E Peak Mark 1.0 m/sec EDV 2D 62.6 cm3 MV A Peak Mark 1.2 m/sec ESV 2D 17.1 cm3 MV E/A 0.9 LA Dimen 2D 2.9 2.3 - 4.0 cm MV Decel Time 224 msec MV Decel Merrick 5 MV E/A 0.9 Findings Left Ventricle: Normal left ventricular systolic function. Normal left ventricular cavity size. Normal left ventricular wall thickness. Ejection fraction is visually estimated at 65 %. Tissue Doppler/Mitral Doppler indices are consistent with impaired relaxation (Stage I diastolic dysfunction). E/E`=10. E`=0 cm/s. Right Ventricle: Normal right ventricular size. Normal right ventricular systolic function. Left Atrium: The left atrium is normal in size. Right Atrium: The right atrium is normal in size. Atrial Septum: Normal atrial septum. Mitral Valve: Normal appearance of the mitral valve. Trace mitral regurgitation. Aortic Valve: Normal appearance of the aortic valve. No significant aortic stenosis or insufficiency. Tricuspid Valve: Normal appearance of the tricuspid valve. There is trace tricuspid regurgitation. Pulmonic Valve: Pulmonic valve not well visualized. Pericardium: Normal pericardium with no significant pericardial effusion. Aorta: Normal aortic root. IVC: Normal size and normal respiratory collapse consistent with normal right atrial pressure. Pulmonary Artery: Not well visualized. Conclusions 1.Normal left ventricular systolic function. Normal left ventricular cavity size. Normal left ventricular wall thickness. Ejection fraction is visually estimated at 60 %. Tissue Doppler/Mitral Doppler indices are consistent with impaired relaxation (Stage I diastolic dysfunction). E/E`=10. E`=0 cm/s. 2.Normal appearance of the mitral valve. Trace mitral regurgitation. 3.Normal appearance of the tricuspid valve. There is trace tricuspid regurgitation. Electronically Signed By: Robert Waggoner 07-Dec-2016 14:47:39 -0700 Patient Name: DENYS BELL Study Date: 05-Dec-2016 [id number]
--- NOTE | 2016-12-07 16:28 | PN ---
DATE: 12/07/2016 SUBJECTIVE DATA: Ms. Black is experiencing increasing shortness of breath today. Ms. Black remains relatively stable this morning. No new events. OBJECTIVE DATA: VITAL SIGNS: Temp 98, pulse 78, blood pressure 139/70, O2 saturation 96 percent on 2 L. NECK: Supple. No JVD. No lymphadenopathy. CARDIAC: S1, S2. No added sounds or murmurs. CHEST: Diminished air entry bilaterally. ABDOMEN: Soft, nontender. No guarding or rebound. EXTREMITIES: No cyanosis, clubbing or edema. NEUROLOGIC: Grossly intact. LABS: White count 14.7, hemoglobin 15.7, platelets of 291,000. BUN 18, creatinine 0.56. IMPRESSION: 1. Congestive cardiac failure. 2. Possible pulmonary hypertension. 3. No evidence of pulmonary hypertension on echocardiogram. PLAN: 1. Discharge home with supplemental O2 and bronchodilators. 2. Will follow up with me in the office with PFTs and further workup. Alpha-1 antitrypsin level pending at time of this dictation. Dictated By: Felipe Diaz MD /johnny/bc /Document#: [id number]
[2016-12-07] MEDS ORDERED: METF500T4 PO (16:30)
[2016-12-07] MEDS ORDERED: AZIT250T6 PO (16:30)
[2016-12-07] MEDS ORDERED: PRED20TA PO (16:30)
--- NOTE | 2016-12-07 16:39 | PDOCDIS ---
Discharge Instructions CONDITION Patient Condition: Stable FOLLOW UP/APPOINTMENTS Follow-up Plan Please follow up with your regular doctor within 7 days to talk about your diabetes Por favor, siga con [facility] mdico habitual dentro de 7 mcdaniel para hablar de woodard diabetes Por favor, siga con el mdico de pulmn que le navneet en el hospital Please follow up with the lung doctor who saw you in the hospital Dr Diaz Office Address [address] [place] [address] Office ONEYDA NEELY MD Dec 07, 2016 16:39
--- NOTE | 2016-12-07 16:41 | DS ---
Date/Time of Note Date/Time of Note DATE: 12/07/16 TIME: 16:40 Discharge Summary Admission/Discharge Info Admit Date/Time Dec 02, 2016 at 22:21 Discharge Date/Time Discharge Diagnosis type 2 diabetes, emphysema Patient Condition: Stable Consults pulmonology Procedures CTA chest 8.31 IMPRESSION: 1. No pulmonary emboli through the level of the subsegmental pulmonary arteries. 2. Moderate to severe centrilobular and paraseptal emphysema. No focal consolidation. 3. Cyst within the midline cutaneous tissues at the level of the sternum. 4. Vascular calcifications consistent with atherosclerosis. TTE 9.2 Conclusions 1. Normal left ventricular systolic function. Normal left ventricular cavity size. Normal left ventricular wall thickness. Ejection fraction is visually estimated at 60 %. Tissue Doppler/Mitral Doppler indices are consistent with impaired relaxation (Stage I diastolic dysfunction). E/E`=10. E`=0 cm/s. 2. Normal appearance of the mitral valve. Trace mitral regurgitation. 3. Normal appearance of the tricuspid valve. There is trace tricuspid regurgitation. Hx of Present Illness This is a 56-year-old female with a history of hypertension who was sent by Dr. Liu for hypoxia and shortness of breath. Patient denied a history of reactive airway disease. When she presented to the ER, blood pressure was 178/79 with a heart rate of 82. She was afebrile and oxygen saturation was 97% on room air. ABG on room air shows pH of 7.4, PCO2 57, PO2 [address] pulmonary angiogram shows moderate to severe centrilobular emphysema. . Hospital Course 56 yo F admitted for SOB, thought to be 2/2 COPD, concern for underlying pulm htn. Given findings of COPD on imaging pt treated for acute COPD exacerbation with steroid burst, Escobar, Zpack. Pt required supplemental O2 during her stay and even at discharge. TTE without evidence of significant pulm htn and CTA without evidence of PE. Of note, a1c returned at 6.8. Pt started on metformin for DM management. No changes to home BP meds. Home Meds Active Scripts Albuterol/Ipratropium* (Combivent Respimat*) 20-100 Mcg/Inh - 4 Gm Aer.w.adap, 1 PUFF INHALATION QID Y for SHORTNESS OF BREATH, #1 INHALER Prov:ONEYDA NEELY MD 12/07/16 Metformin Hcl* (Metformin Hcl*) 500 Mg Tablet, 500 MG PO WITH BREAKFAST for 14 Days, #14 TAB Prov:ONEYDA NEELY MD 12/07/16 Azithromycin* (Azithromycin*) 250 Mg Tablet, 250 MG PO DAILY for 3 Days, #3 TAB Prov:ONEYDA NEELY MD 12/07/16 Prednisone* (Prednisone*) 20 Mg Tab, 40 MG PO DAILY for 3 Days, #3 TAB Prov:ONEYDA NEELY MD 12/07/16 Reported Medications Losartan Potassium* (Losartan Potassium*) 50 Mg Tablet, 50 MG PO DAILY, TAB 12/02/16 Hydrochlorothiazide* (Hydrochlorothiazide*) 25 Mg Tab, 25 MG PO DAILY, #30 TAB 12/02/16 Atorvastatin Calcium (Atorvastatin Calcium) 10 Mg Tablet, 10 MG PO QHS, #30 TAB 12/02/16 Follow-up Plan PCP within 7 days pulm within 4 weeks Primary Care Provider [facility] Time spent on discharge: > 30 minutes Pending Labs Laboratory Tests Test 12/06/16 17:56 12/06/16 21:45 12/07/16 02:04 12/07/16 05:02 Bedside Glucose 221mg/dL (70-220) 181mg/dL (70-220) 135mg/dL (70-220) White Blood Count 15.710^3/ul (4.8-10.8) Red Blood Count 5.4710^6/ul (4.20-5.40) Hemoglobin 15.7g/dl (12.0-16.0) Hematocrit 46.8% (37.0-47.0) Mean Corpuscular Volume 85.6fl (82.0-101.0) Mean Corpuscular Hemoglobin 28.7pg (29.0-33.0) Mean Corpuscular Hemoglobin Concent 33.5g/dl (32.0-37.0) Red Cell Distribution Width 13.2% (11.5-14.5) Platelet Count 08292^3/UL (140-415) Mean Platelet Volume 10.4fl (7.4-10.4) Neutrophils % 79.8% (39.0-77.0) Lymphocytes % 11.0% (15.0-51.0) Monocytes % 8.8% (0.0-11.0) Eosinophils % 0.0% (0.0-7.0) Basophils % 0.1% (0.0-2.0) Nucleated Red Blood Cells % 0.0/100WBC (0.0-0.0) Neutrophils # (Manual) 12.510^3/ul (1.7-7.5) Lymphocytes # 1.710^3/ul (0.8-2.9) Monocytes # 1.410^3/ul (0.3-0.9) Eosinophils # 0.010^3/ul (0.0-0.5) Basophils # 0.010^3/ul (0.0-0.1) Nucleated Red Blood Cells # 0.010^3/ul (0.0-0.0) Sodium Level 138mmol/L (135-144) Potassium Level 3.5mmol/L (3.5-5.1) Chloride Level 94mmol/L (97-110) Carbon Dioxide Level 39mmol/L (21-31) Anion Gap 9 (8-16) Blood Urea Nitrogen 18mg/dl (7-20) Creatinine 0.56mg/dl (0.44-1.00) Glucose Level 113mg/dl (70-220) Calcium Level 9.6mg/dl (8.4-10.2) Test 12/07/16 08:44 12/07/16 12:21 12/07/16 13:21 12/07/16 14:29 Bedside Glucose 77mg/dL (70-220) 60mg/dL (70-220) 155mg/dL (70-220) 163mg/dL (70-220) Copies To: CC: SKY LIU MD, [facility] ONEYDA NEELY MD Dec 07, 2016 16:41 ONEYDA NEELY MD Dec 07, 2016 16:41
[2016-12-07] MEDS ORDERED: IPRA4AER INHALATION (16:42)
== END 2016-12-07 19:46 | disposition home health service (06) | DRG 190 ==
LOC: E/R 17:42 → TEL 22:21 → PP2 12-06 22:32
PROVIDERS: ADMIT Internal Medicine; ATTEND Internal Medicine
DX: J44.1 Chronic obstructive pulmonary disease with (acute) exacerbation (principal); J96.01 Acute respiratory failure with hypoxia; I10 Essential (primary) hypertension; D72.829 Elevated white blood cell count, unspecified; E11.9 Type 2 diabetes mellitus without complications
CPT/HCPCS: 36600; 71010; 71275; 80048; 80061; 81003; 82103; 82550; 82553; 82803; 82947; 82962; 83036; 83880; 84484; 85025; 93005; 93306; 94640; 94664; J1815; J1956; J2920; J2930; J7512; Q9967